=== PATIENT | female | born 1990 | race African-American/Black ===

== ENCOUNTER 2019-09-07 14:07 | Emergency (ER) | payer MEDICAID ==
--- NOTE | 2019-09-08 01:57 | EDM.PDOC ---
ED HPI GENERAL MEDICAL PROBLEM - General Chief Complaint: General Stated Complaint: HEAD AND BODY ACHES SORE THROAT Time Seen by Provider: 09/07/19 14:10 Source of Information: Reports: Patient History Limitations: Reports: No Limitations - History of Present Illness INITIAL COMMENTS - FREE TEXT/NARRATIVE: Pt. presents to ER with complaints of fever, chills, sinus congestion, cough, and L ear pain. She states that she has been feeling poorly for 1-2 days, No nausea, vomiting, or diarrhea. No chest pain or shortness of breath. 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 Denies any rashes. Complains of myalgias and general fatigue. Onset Date: 09/06/19 Duration: Constant Location: Reports: Head, Face (L ear), Generalized Quality: Reports: Ache, Throbbing Severity: Moderate Associated Symptoms: Reports: Cough, Fever/Chills, Malaise. 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 [No Known Home Meds] 06/26/19 [History] Past Medical History - Past Health History Medical/Surgical History: Denies Medical/Surgical History Psychiatric History: Reports: Anxiety - Past Surgical History HEENT Surgical History: Reports: Oral Surgery GI Surgical History: Reports: Appendectomy Social & Family History - Tobacco Use Smoking Status *Q: Never Smoker - Caffeine Use Caffeine Use: Reports: None - Recreational Drug Use Recreational Drug Use: No ED ROS GENERAL - Review of Systems Review Of Systems: See Below Constitutional: Reports: Fever, Chills, Weakness, Fatigue HEENT: Reports: Ear Pain, Rhinitis, Sinus Problem, Throat Pain. Denies: Vertigo , Vision Change Respiratory: Reports: No Symptoms Cardiovascular: Reports: No Symptoms Endocrine: Reports: No Symptoms GI/Abdominal: Reports: No Symptoms. Denies: Nausea, Vomiting : Reports: No Symptoms Musculoskeletal: Reports: No Symptoms Skin: Reports: No Symptoms Neurological: Reports: No Symptoms Psychiatric: Reports: No Symptoms Hematologic/Lymphatic: Reports: No Symptoms Immunologic: Reports: No Symptoms ED EXAM, GENERAL - Physical Exam Exam: See Below General Appearance: Alert, WD/WN, No Apparent Distress Eye Exam: Bilateral Eye: EOMI, Normal Fundi, Normal Inspection, PERRL Ears: Normal External Exam, Other (L TM is erythematous and mildly bulging.). No: Hearing Loss Ear Exam: Right Ear: TM normal, Left Ear: Erythema, Swelling, TM Red, TM Bulging , Bilateral Ear: Auricle Normal, Canal Normal Nose: Normal Inspection, Normal Mucosa, No Blood Throat/Mouth: Normal Inspection, Normal Lips, Normal Teeth, Normal Gums, Normal Oropharynx, Normal Voice, No Airway Compromise Head: Atraumatic, Normocephalic Neck: Normal Inspection, Supple, Non-Tender, Lymphadenopathy (L), Lymphadenopathy (R) Respiratory/Chest: No Respiratory Distress, Lungs Clear, Normal Breath Sounds, No Accessory Muscle Use, Chest Non-Tender Cardiovascular: Normal Peripheral Pulses, Regular Rate, Rhythm, No Edema, No Gallop, No JVD, No Murmur, No Rub GI/Abdominal: Normal Bowel Sounds, Soft, Non-Tender, No Organomegaly, No Distention, No Mass, Pelvis Stable (Female) Exam: Deferred Rectal (Female) Exam: Deferred Back Exam: Normal Inspection, Full Range of Motion Extremities: Normal Inspection, Normal Range of Motion, Non-Tender, No Pedal Edema, Normal Capillary Refill Neurological: Alert, Oriented, CN II-XII Intact, Normal Cognition, No Motor/ Sensory Deficits Psychiatric: Normal Affect, Normal Mood Skin Exam: Warm, Dry, Intact, Normal Color, No Rash Lymphatic: No Adenopathy Course - Vital Signs Last Recorded V/S: Last Vital Signs Temp 36.1 C 09/07/19 14:07 Pulse 58 L 09/07/19 14:07 Resp 16 09/07/19 14:07 BP 112/69 09/07/19 14:07 Pulse Ox 98 09/07/19 14:07 - Orders/Labs/Meds Orders: Active Orders 24 hr Category Date Time Status CULTURE STREP A CONFIRMATION [] Stat Lab 09/07/19 14:27 Results STREP SCRN A RAPID W CULT CONF [] Stat Lab 09/07/19 14:27 Results Departure - Departure Time of Disposition: 15:00 Disposition: Home, Self-Care 01 Clinical Impression: Viral illness, Otitis media, left - Discharge Information Instructions: Cefdinir capsules, Otitis Media, Adult, [id number], Probiotics Referrals: PCP,None [Primary Care Provider] - Forms: ED Department Discharge Additional Instructions: Off work at least today/until 24 hours after last fever. Cefdinir 300mg 1 twice daily for 10 days Tylenol and ibuprofen for fever/discomfort Drink plenty of fluids Recheck in clinic in 10- 14 days, sooner if not improving. Sepsis Event Note - Evaluation Sepsis Screening Result: No Definite Risk - Focused Exam Vital Signs: Vital Signs Temp Pulse Resp BP Pulse Ox 09/07/19 14:07 36.1 C 58 L 16 112/69 98 Date Exam was Performed: 09/08/19 Time Exam was Performed: 01:52 - My Orders Last 24 Hours: My Active Orders 09/07/19 14:27 CULTURE STREP A CONFIRMATION [RM] Stat STREP SCRN A RAPID W CULT CONF [] Stat - Assessment/Plan Last 24 Hours: My Active Orders 09/07/19 14:27 CULTURE STREP A CONFIRMATION [RM] Stat STREP SCRN A RAPID W CULT CONF [] Stat Plan: Off work at least today/until 24 hours after last fever. Cefdinir 300mg 1 twice daily for 10 days Tylenol and ibuprofen for fever/discomfort Drink plenty of fluids Recheck in clinic in 10- 14 days, sooner if not improving.
== END 2019-09-07 15:05 | disposition home or self-care (01) ==
LOC: VM.ED 14:07
DX: H66.92 Otitis media, unspecified, left ear (principal); B34.9 Viral infection, unspecified; Z88.1 Allergy status to other antibiotic agents
CPT/HCPCS: 87081; 87804; 87804-59; 87880-QW; 99283